=== PATIENT | male | born 1995 | race Caucasian/White ===

== ENCOUNTER 2018-11-12 19:29 | Inpatient (IN) | payer MEDICAID ==
[~2018-11-12] VITALS: Ht 180.3 cm; Wt 70.9 kg
[2018-11-12 20:39] LABS: BASOPHILS 0.2 % (0-2); EOSINOPHILS 0.5 % (0-7); HEMATOCRIT 39.7 % (42.0-54.0); IMMATURE GRANULOCYTES 0.2 % (0-5); LYMPHOCYTES 14.7 % (15-50); MCHC 35.3 g/dL (31.0-37.0); MONOCYTES 9.6 % (2-11); NEUTROPHILS 74.8 % (40-80); PLATELET COUNT 162 10x3/uL (130-400); RBC 4.67 10x6/uL (4.20-6.10); RDW 12.8 % (11.5-14.5); WBC 14.9 10x3/uL (4.8-10.8)
[2018-11-12 20:50] LABS: APPEARANCE CLEAR (CLEAR); BILIRUBIN NEGATIVE (NEGATIVE); COLOR YELLOW (YELLOW); GLUCOSE NEGATIVE (NEGATIVE); KETONE NEGATIVE (NEGATIVE); NITRITE NEGATIVE (NEGATIVE); PROTEIN 1+ mg/dL (NEGATIVE); UROBILINOGEN NORMAL (NORMAL)
[2018-11-12 21:11] LABS: ALBUMIN 3.6 g/dL (3.4-5.0); ALKALINE PHOSPHATASE 64 U/L (46-116); ALT (SGPT) 27 U/L (10-68); BILIRUBIN - TOTAL 0.53 mg/dL (0.2-1.3); CALC OSMOLALITY 278 mosm/kg (275-300); CALCIUM 8.9 mg/dL (8.5-10.1); CARBON DIOXIDE 26.1 mmol/L (21.0-32.0); CHLORIDE - SERUM 100 mmol/L (98-107); CREATININE - SERUM 1.1 mg/dL (0.6-1.3); GLUCOSE 120 mg/dL (74-106); POTASSIUM - SERUM 3.7 mmol/L (3.5-5.1); PROTEIN - SERUM 7.5 g/dL (6.4-8.2); SODIUM 138 mmol/L (136-145); UREA NITROGEN 19 mg/dL (7-18); eGFR NON AFRICAN AMERICAN 88 mL/min (90-120)
[2018-11-12 23:56] VITALS: BP 120/67
--- NOTE | 2018-11-13 00:45 | NUR ---
PT ARRIVED TO FLOOR VIA STRETCHER. AMBULATED TO BED WITH MINIMAL ASSIST. IV RIGHT FA INFUSING NS @ 100. PT STATES PAIN 7/10 AFTER AMBULATING. PAIN IS IN THE LEFT GROIN, SCROTUM AND THIGH AREA. THERE IS REDNESS AND SWELLING. SKIN IS HARDENED UPON TOUCH. PT REQUESTED AND GIVEN JELLO, PUDDING AND ORANGE JUICE. ALERT AND ORIENTED WITHOUT DISTRESS. DENIES OTHER NEEDS AT THIS TIME. CL IN REACH, WILL CONT TO MONITOR
[2018-11-13 01:12] VITALS: BP 127/72; BMI 21.8
--- NOTE | 2018-11-13 02:45 | NUR ---
PT STATES PAIN 02/07. GAVE MORPHINE ORDERED
[2018-11-13 04:00] VITALS: BP 123/65
[2018-11-13 04:30] LABS: BASOPHILS 0.3 % (0-2); EOSINOPHILS 0.8 % (0-7); HEMATOCRIT 37.6 % (42.0-54.0); HEMOGLOBIN 12.8 g/dL (13.5-17.5); IMMATURE GRANULOCYTES 0.4 % (0-5); LYMPHOCYTES 17.3 % (15-50); MCH 30.3 pg (26.0-34.0); MEAN PLATELET VOLUME 11.3 fL (7.4-10.4); NEUTROPHILS 68.2 % (40-80); PLATELET COUNT 146 10x3/uL (130-400); RBC 4.22 10x6/uL (4.20-6.10); RDW 12.9 % (11.5-14.5); WBC 13.2 10x3/uL (4.8-10.8)
[2018-11-13 04:35] LABS: MCV 89.1 fL (80.0-100.0)
[2018-11-13 04:46] LABS: CALC OSMOLALITY 274 mosm/kg (275-300); CALCIUM 8.1 mg/dL (8.5-10.1); CARBON DIOXIDE 23.2 mmol/L (21.0-32.0); CHLORIDE - SERUM 100 mmol/L (98-107); CREATININE - SERUM 0.9 mg/dL (0.6-1.3); GLUCOSE 121 mg/dL (74-106); MAGNESIUM - SERUM 1.9 mg/dL (1.8-2.4); PHOSPHOROUS 3.3 mg/dL (2.5-4.9); POTASSIUM - SERUM 4.2 mmol/L (3.5-5.1); SODIUM 136 mmol/L (136-145); UREA NITROGEN 17 mg/dL (7-18); eGFR NON AFRICAN AMERICAN > 90 mL/min (90-120)
--- NOTE | 2018-11-13 08:28 | NUR ---
AWAKE AND ALERT. ORIENTED X3. NO C/O AT THIS TIME. LUNGS ARE CLEAR BILATERALLY, NO COUGH NOTED. SKIN IS INTACT. REDNESS AND WARMTH NOTED TO LEFT GROIN AREA, VERY TENDER TO TOUCH. WILL MONITOR. IV TO RIGHT FOREARM IS PATENT WTIHOUT REDNESS AT INSERTION SITE. DENIES NEEDS. INSTRUCTED TO STAY NPO UNTILL SEEN BY SURGERY.
[2018-11-13 09:39] VITALS: BP 132/72
--- NOTE | 2018-11-13 10:00 | NUR ---
HELD NPO AT THIS TIME UNTILL SEEN BY SURGERY. REFUSED SCD'S SINCE HE IS UP AD SOPHIE.
[2018-11-13 13:08] VITALS: BP 114/61
[2018-11-13 13:44] VITALS: Ht 180.3 cm; Wt 70.9 kg
[2018-11-13 16:03] VITALS: BP 122/74
--- NOTE | 2018-11-13 16:07 | NUR ---
REQUESTED AND GIVEN 4MG MORPHINE SLOW IVP FOR C/O LEFT GROIN PAIN LEVEL 9. WILL MONITOR.
--- NOTE | 2018-11-13 18:36 | NUR ---
ATE MOST OF DINNER. DENIES NEEDS. NO CHANGES NOTED. VISITOR AT BEDSIDE.
--- NOTE | 2018-11-13 19:10 | NUR ---
REPORT RECEIVED. PT IN ROOM WITH EYES CLOSED AND UNLABORED RESPIRATIONS. SIGNIFICANT OTHER IN BED WITH PATIENT. AROUSES TO VERBAL STIMLULI. DENIES PAIN AT THIS TIME. GROIN AREA REDDENDED WITH THAT IS MARKED WITH BLACK MARKER. CALL LIGHT IN REACH. CPOC.
[2018-11-13 20:49] VITALS: BP 118/67
--- NOTE | 2018-11-14 01:44 | NUR ---
RESTING WITH UNLABORED RESPIRATIONS. SIGNIFICANT OTHER IN BED. NO SIGNS OR SYMPTOMS OF DISTRESS.
[2018-11-14 02:08] VITALS: BP 105/52
--- NOTE | 2018-11-14 05:27 | NUR ---
THIS NURSE AND THE AID ATTEMPTED TO ASSIST PATIENT WITH HIBBA CLEANSE SEVERAL TIMES. STATED HE WAS TOO TIRED AT THIS TIME AND HAD TO REPEAT MYSELF SEVERAL TIMES. PT CONTINUED TO LAY IN BED WITH SIGNIFICANT OTHER.
--- NOTE | 2018-11-14 05:31 | NUR ---
I have reviewed this patient and I concur with the Shift Assessment completed by the Licensed Practical Nurse today this shift.
--- NOTE | 2018-11-14 05:59 | NUR ---
ATTEMPTED TO DO HIBBA CLEANSE AGAIN AND CHANGE SHEETS. PT WOULD NOD HEAD BUT THEN GO BACK TO SLEEP. PT IS ALERT AND ORIENTED JUST VERY TIRED THIS MORNING. EXPLAINED TO PT THAT HE HAS TO HAVE THIS BATH TO GO TO SURGERY. PT STILL IN BED WITH SIGNIFICANT OTHER.
[2018-11-14 06:05] LABS: ALBUMIN 2.7 g/dL (3.4-5.0); ALKALINE PHOSPHATASE 54 U/L (46-116); ALT (SGPT) 21 U/L (10-68); BILIRUBIN - TOTAL 0.35 mg/dL (0.2-1.3); CARBON DIOXIDE 24.1 mmol/L (21.0-32.0); CHLORIDE - SERUM 104 mmol/L (98-107); CREATININE - SERUM 0.8 mg/dL (0.6-1.3); GLUCOSE 120 mg/dL (74-106); POTASSIUM - SERUM 3.8 mmol/L (3.5-5.1); PROTEIN - SERUM 5.7 g/dL (6.4-8.2); SODIUM 138 mmol/L (136-145); eGFR NON AFRICAN AMERICAN > 90 mL/min (90-120)
[2018-11-14 06:39] LABS: CALC OSMOLALITY 274 mosm/kg (275-300); UREA NITROGEN 7 mg/dL (7-18)
--- NOTE | 2018-11-14 07:36 | NUR ---
PT RESTING IN BED. HIBICLENS DONE. NPO FOR SX TODAY. REQUEST PAIN MEDS. EDUCATED PT THAT IT WAS NOT TIME FOR PAIN MEDS. PT "UNDERSTANDS". NO S/S OF ACUTE DISTRESS. GF AT BEDSIDE. CL IN PLACE.
--- NOTE | 2018-11-14 08:32 | NUR ---
Pt of Dr. Packer's going to OR today for surgical debridement.
[2018-11-14 09:39] VITALS: BP 119/68
[2018-11-14 11:03] LABS: BASOPHILS 0.2 % (0-2); EOSINOPHILS 2.8 % (0-7); HEMATOCRIT 37.5 % (42.0-54.0); IMMATURE GRANULOCYTES 0.1 % (0-5); MCH 29.7 pg (26.0-34.0); MCHC 34.7 g/dL (31.0-37.0); MEAN PLATELET VOLUME 11.2 fL (7.4-10.4); MONOCYTES 11.6 % (2-11); NEUTROPHILS 63.3 % (40-80); PLATELET COUNT 153 10x3/uL (130-400); RBC 4.37 10x6/uL (4.20-6.10); RDW 12.4 % (11.5-14.5)
[2018-11-14 11:04] LABS: MCV 85.8 fL (80.0-100.0); WBC 8.6 10x3/uL (4.8-10.8)
--- NOTE | 2018-11-14 13:00 | NUR ---
WALKED IN AND PT WAS SIPPING ON COLA. EDUCATED PT, HE WAS NOT TO EAT OR DRINK AND STRICT NPO DT IT NOT BEING SAFE AND INCREASE ASIPRATION. EXPLAINED TO PT WHAT ASPIRATION IS AND THE DANGER OF IT HAPPENING. SPOKE WITH FAUSTO MEIER, CM WHO NOTIFIED BARTOLO IN SURGERY. NO S/S OF ACUTE DISTRESS. CL IN PLACE.
--- NOTE | 2018-11-14 13:37 | NUR ---
Payam in OR notified that patient drank a few sips of coke approx at 1300 he stated he would let anesthesia know
[2018-11-14 13:38] VITALS: BP 130/85
[2018-11-14 15:34] LABS: UDS - AMPHET POSITIVE QUAL (NEGATIVE); UDS - BARB NEGATIVE QUAL (NEGATIVE); UDS - BENZO NEGATIVE QUAL (NEGATIVE); UDS - COCAINE NEGATIVE QUAL (NEGATIVE); UDS - OPIATE POSITIVE QUAL (NEGATIVE); UDS - PCP NEGATIVE QUAL (NEGATIVE); UDS - THC NEGATIVE QUAL (NEGATIVE)
--- NOTE | 2018-11-14 15:54 | NUR ---
SPOKE WITH MADIE VALDEZ ABOUT PT TEXT POSITIVE FOR AMPHETAMINES. SEARCH ROOM ONCE PT LEAVES TO GO TO THE OR.
[2018-11-14 17:57] VITALS: BP 128/77
--- NOTE | 2018-11-14 18:22 | NUR ---
PT RESTING IN BED. GF AT BEDSIDE. AGITATED ABOUT BEING NPO. EXPLAINED TO PT THAT SX WAS BEHIND. NO S/S OF ACUTE DISTRESS. CL IN PLACE.
--- NOTE | 2018-11-14 19:40 | NUR ---
PT TAKEN TO SURGERY VIA BED
--- NOTE | 2018-11-14 20:30 | NUR ---
PT ROOM SEARCHED BY THIS NURSE AND SECURITY WHILE PATIENT WAS IN SURGERY. IN FRONT POCKET OF BACKPACK SITTING AT BEDSIDE WAS A CAPPED INSULIN SYRINGE THAT IS DIFFERENT FROM THE SYRINGES WE USE IN THIS HOSPITAL. IN SECOND POCKET NEAR PT WALLET AND PHONE WAS AN UNCAPPED INSULIN SYRINGE WITH THE NEEDLE SLIGHTLY BENT AND SMALL AMOUNT OF BLOOD IN SYRINGE. NEEDLE WAS RECAPPED CAREFULLY WITH CAP THAT WAS LAYING NEAR BY THAT HAD BITE BECK ON IT. BOTH WERE PLACED IN ZIPLOCK BAG. NO OTHER ITEMS FOUND. RECRUITING TEAM LEAD AND METAL PRECISION MACHINE ASSEMBLER NOTIFIED. ADMINISTRATION WASTEWATER ENGINEER NOTIFIED. WILL NOTIFY DOCTOR OF FINDINGS. BOTH SYRINGES WERE DISPOSED OF IN SHARPS CONTAINER.
--- NOTE | 2018-11-14 21:05 | NUR ---
PT ARRIVED BACK FROM SURGERY VIA BED. ALERT AND ORIENTED. STATES PAIN TO LEFT GROIN 10/10. CONNECTED PT BACK UP TO MORPHINE PROGRAM ADVISOR. VSS. REFUSES SCDS. PT REQUESTED AND GIVEN SANDWICH TRAY AND ORANGE JUICE. DENIES OTHER NEEDS AT THIS TIME. CL IN REACH, WILL CONT TO MONITOR
[2018-11-14 21:06] VITALS: BP 123/81
[2018-11-15 03:00] VITALS: BP 145/61
[2018-11-15 06:45] LABS: BASOPHILS 0 % (0-2); EOSINOPHILS 0 % (0-7); HEMATOCRIT 38.6 % (42.0-54.0); HEMOGLOBIN 13.5 g/dL (13.5-17.5); IMMATURE GRANULOCYTES 0.2 % (0-5); LYMPHOCYTES 7.2 % (15-50); MCH 29.6 pg (26.0-34.0); MCV 84.6 fL (80.0-100.0); MEAN PLATELET VOLUME 11.4 fL (7.4-10.4); NEUTROPHILS 90.6 % (40-80); RBC 4.56 10x6/uL (4.20-6.10); WBC 9.2 10x3/uL (4.8-10.8)
[2018-11-15 06:47] LABS: PLATELET COUNT 194 10x3/uL (130-400)
[2018-11-15 07:43] LABS: ALBUMIN 2.8 g/dL (3.4-5.0); ALKALINE PHOSPHATASE 62 U/L (46-116); ALT (SGPT) 19 U/L (10-68); BILIRUBIN - TOTAL 0.27 mg/dL (0.2-1.3); CALCIUM 8.4 mg/dL (8.5-10.1); CARBON DIOXIDE 26.1 mmol/L (21.0-32.0); CHLORIDE - SERUM 105 mmol/L (98-107); CREATININE - SERUM 0.9 mg/dL (0.6-1.3); PROTEIN - SERUM 6.3 g/dL (6.4-8.2); SODIUM 139 mmol/L (136-145); UREA NITROGEN 8 mg/dL (7-18); eGFR NON AFRICAN AMERICAN > 90 mL/min (90-120)
--- NOTE | 2018-11-15 07:44 | NUR ---
PT RESTING IN BED. AROUSED BY DEEP STIMULI. GF IN THE BED WITH PT. NO S/S OF ACUTE DISTRESS. CL IN PLACE.
[2018-11-15 07:48] LABS: CALC OSMOLALITY 281 mosm/kg (275-300); GLUCOSE 201 mg/dL (74-106); POTASSIUM - SERUM 4.4 mmol/L (3.5-5.1)
[2018-11-15 08:49] VITALS: BP 109/64
--- NOTE | 2018-11-15 10:20 | NUR ---
SPOKE WITH MADIE ABOUT PT BEING OVERSEDATED DT TIN ROOFER AND MAXING OUT HIS PUMP. DC TIN ROOFER. TO FOR NORCO AND MORPHINE PRN. NO S/S OF ACUTE DISTRESS. CL IN PLACE.
--- NOTE | 2018-11-15 13:00 | NUR ---
AFTER ENTERING PT ROOM AN ODOR OF CIGARETTE SMOKE WAS PRESENT. QUESTIONED PT WHO STATED, "I WILL NOT LIE, I SMOKED IN THE BATHROOM." EXPLAINED TO PT THAT WAS NOT ALLOWED TOOK CIGARETTES AND CALLED JORGE LUIS BIOFUELS PRODUCT MANAGER. WHO STATED, "CALL MADIE VALDEZ TO COME AND SPEAK WITH PATIENT AND EXPLAIN IF THEY COULD NOT COMPLY THEY WOULD NEED TO DC FROM FACILITY."
--- NOTE | 2018-11-15 13:00 | NUR ---
PLACED PT CIGARETTES IN [facility].
[2018-11-15 13:39] VITALS: BP 118/68
[2018-11-15 17:09] VITALS: BP 105/49
--- NOTE | 2018-11-15 17:54 | NUR ---
PT RESTING IN BED WITH GF. NO S/S OF ACUTE DISTRESS. CL IN PLACE.
[2018-11-15 20:18] VITALS: BP 136/78
--- NOTE | 2018-11-16 05:02 | NUR ---
PT IN BED IN SUPINE POSITION. ALERT AND ORIENTED X4. RESPIRATIONS EVEN AND UNLABORED. VS STABLE AND AFEBRILE. NO VISUAL CUES OF DISTRESS NOTED. DENIES ANY OTHER NEEDS AT THIS TIME. BED LOW, SIDE RAILS UP X2. CALL LIGHT IN REACH. WILL CONTINUE TO MONITOR.
[2018-11-16 05:34] VITALS: BP 120/80
[2018-11-16 06:17] LABS: BASOPHILS 0.5 % (0-2); EOSINOPHILS 1.4 % (0-7); HEMOGLOBIN 12.9 g/dL (13.5-17.5); IMMATURE GRANULOCYTES 0.3 % (0-5); LYMPHOCYTES 33.5 % (15-50); MCH 29.5 pg (26.0-34.0); MCHC 34.9 g/dL (31.0-37.0); MCV 84.5 fL (80.0-100.0); MEAN PLATELET VOLUME 11.1 fL (7.4-10.4); MONOCYTES 7.9 % (2-11); NEUTROPHILS 56.4 % (40-80); PLATELET COUNT 188 10x3/uL (130-400); RBC 4.38 10x6/uL (4.20-6.10); RDW 12.1 % (11.5-14.5); WBC 10.4 10x3/uL (4.8-10.8)
[2018-11-16 06:42] LABS: ALBUMIN 2.7 g/dL (3.4-5.0); ALKALINE PHOSPHATASE 53 U/L (46-116); ALT (SGPT) 20 U/L (10-68); BILIRUBIN - TOTAL 0.25 mg/dL (0.2-1.3); CALCIUM 8.4 mg/dL (8.5-10.1); CHLORIDE - SERUM 106 mmol/L (98-107); CREATININE - SERUM 0.7 mg/dL (0.6-1.3); POTASSIUM - SERUM 3.9 mmol/L (3.5-5.1); PROTEIN - SERUM 6.4 g/dL (6.4-8.2); SODIUM 141 mmol/L (136-145); UREA NITROGEN 8 mg/dL (7-18); eGFR NON AFRICAN AMERICAN > 90 mL/min (90-120)
[2018-11-16 06:44] LABS: CALC OSMOLALITY 278 mosm/kg (275-300); GLUCOSE 90 mg/dL (74-106)
[2018-11-16 08:57] VITALS: BP 113/67
[2018-11-16] MEDS ORDERED: HYDROCODON-ACE1 EA10 PO (10:26)
[2018-11-16] MEDS ORDERED: SULFAMETHOXAZOL1 TA3 PO (10:27)
--- NOTE | 2018-11-16 10:49 | NUR ---
MEDICATED WITH NORCO FOR C/O PAIN RATING 8/10 ON PAIN SCALE. C/L IN REACH AT BEDSIDE.
--- NOTE | 2018-11-16 12:35 | NUR ---
DC HOME VOICE UNDERSTANDING OF DC ORDERS. IN STABLE CONDITION UPON DC HOME.
[2018-11-17 15:10] LABS: CHLAMYDIA TRACHOMATIS, NAA Negative (Negative)
--- NOTE | 2018-11-17 16:53 | OP ---
PATIENT NAME: JULIA HOLT MEDICAL RECORD: [id number] LOCATION:[facility] AD[facility]ION DATE:11/12/18 SURGEON: EMMY BRITT MD DATE OF OPERATION: 11/14/2018 PREOPERATIVE DIAGNOSIS: Left groin abscess with a wide zone of erythema involving the left thigh and extending up into the left lower quadrant. POSTOPERATIVE DIAGNOSIS: Left groin abscess with a wide zone of erythema involving the left thigh and extending up into the left lower quadrant. PROCEDURE: Sharp excisional debridement of left groin abscess with marsupialization and packing. Dimensions of debridement, including margins, measured 2.8 cm x 2.5 cm and was 2.2 cm in depth. The debrided tissues involved were skin and subcutaneous tissue, abscess cavity, granulation tissue as well as exudate. SURGEON: Emmy Britt MD BEATER HEAD: None. BLOOD LOSS: Minimal. ANESTHESIA: General. COMPLICATIONS: None. The risks, possible complications and alternatives to the procedure were explained to the patient. He elects to proceed. The discussion specifically included, but was not limited to, bleeding requiring emergency reoperation, infection, and possible need for further abscess procedures. OPERATIVE COURSE: The patient was conveyed to the operating room electively on 11/14/2018. General anesthesia was induced by the anesthesia staff. The left groin was sterilely prepped and draped. A roughly circular incision was accomplished with the scalpel. I debrided back to viable bleeding tissue. I unroofed the abscess cavity. I then curetted out the abscess cavity. There was a great deal of purulence present. Cultures were obtained. We then irrigated with hydrogen peroxide. I then marsupialized the wound with a running locking 3-0 Vicryl Rapide suture. I then packed the wound with 2-inch Kerlix gauze. A sterile dressing was applied. The patient was then extubated and conveyed to the post-anesthesia care unit where he was in stable condition. I would recommend that he continue on IV antibiotics for 2 days and then have the packing removed that he can be dismissed home on an oral antibiotic. TRANSINT:[id number] Voice Confirmation ID: [id number] DOCUMENT ID: [id number] OPERATIVE REPORT [id number] JONATHONEMMY RUDD MD at 1653 CC: [id number] DICTATION DATE: 11/14/182027 TWISTING FRAME FIXER: 11/15/18 0302 DIS IN 11/16/18 [facility] [address] [id number]
== END 2018-11-16 12:39 | disposition home or self-care (01) | DRG 854 ==
LOC: D.ER 19:29 → D.MS 23:45
PROVIDERS: Family Medicine; Surgery; ADMIT Emergency Medicine; ATTEND Emergency Medicine
PROC: 0JBC0ZZ Excision of Pelvic Region Subcutaneous Tissue and Fascia, Open Approach (ICD-10-PCS; principal; 2018-11-14 16:30)
DX: A41.9 Sepsis, unspecified organism (principal); L03.314 Cellulitis of groin; K75.9 Inflammatory liver disease, unspecified